=== PATIENT | male | born 1990 | race Caucasian/White ===

== ENCOUNTER 2017-02-08 11:43 | Emergency (ER) | payer BC ==
[~2017-02-08] VITALS: Ht 182.9 cm; Wt 99.8 kg
[~2017-02-08 11:43] MED LIST: AMITRIPTYLINE H10 M3 PO; ATIVAN1 MG PO; CLONIDINE0.1 PO; LEVAQUIN 500 M500 M2 PO; OMEPRAZOLE 20 M20 M1 PO; RISPERDAL 1 MG T1 MG PO; RISPERDAL2 MG PO; SINGULAIR 10 MG10 M1 PO; TRAZODONE HCL100 MG PO
[2017-02-08 12:59] LABS: ABSOLUTE NEUTROPHILS 9.3 thou/uL (1.4-8.2); BASOPHILS 0.3 % (0.0-2.0); EOSINOPHILS 0.4 % (0.0-3.0); HEMATOCRIT 38.4 % (42.0-52.0); HEMOGLOBIN 12.5 gm/dL (14.0-18.0); LYMPHOCYTES 11.9 % (24.0-44.0); MANUAL DIFF NO; MCH 23.6 pg (26.0-34.0); MCHC 32.6 g/dL (28.0-37.0); MCV 72.6 fL (80.0-100.0); MONOCYTES 6.1 % (1.0-8.0); PLATELET COUNT 430 thou/uL (150-400); POLYS 81.3 % (36.0-66.0); RBC 5.28 mil/uL (4.50-6.00); RDW 16.5 % (10.5-14.5); WBC 11.5 thou/uL (4.0-11.0)
[2017-02-08 13:02] LABS: CALCIUM 10.3 mg/dL (8.5-10.1)
[2017-02-08 14:20] LABS: URINE BILIRUBIN NEGATIVE (Negative); URINE BLOOD NEGATIVE (Negative); URINE COLOR YELLOW; URINE GLUCOSE-RANDOM* NEGATIVE (Negative); URINE KETONES NEGATIVE (Negative); URINE LEUKOCYTES-REFLEX NEGATIVE (Negative); URINE PROTEIN (DIPSTICK) TRACE (Negative); URINE SPECIFIC GRAVITY 1.025 (1.003-1.035); URINE UROBILINOGEN 0.2 E.U./dl (0.2-1.0)
[2017-02-08 14:32] LABS: AMP/METHAMP Negative (Negative); BARBITURATES Negative (Negative); BENZODIAZEPINES POSITIVE (Negative); COCAINE Negative (Negative); METHADONE Negative (Negative); OPIATES Negative (Negative); PCP Negative (Negative); THC Negative (Negative)
[2017-02-08 14:57] LABS: ANISOCYTOSIS 1+; HYPOCHROMASIA 1+; MICROCYTES 2+; PLATELET ESTIMATE INCREASED
[2017-02-08] MEDS ORDERED: XANAX1 MG PO (14:57)
[2017-02-08 15:15] VITALS: BP 128/82
== END 2017-02-08 15:17 | disposition home or self-care (01) ==
LOC: ER 11:43
PROVIDERS: Emergency Medicine
DX: R56.9 Unspecified convulsions (principal); F41.9 Anxiety disorder, unspecified; K21.9 Gastro-esophageal reflux disease without esophagitis; Z98.890 Other specified postprocedural states; Z88.0 Allergy status to penicillin

== ENCOUNTER 2018-05-31 15:14 | Inpatient (IN) | payer BC ==
[~2018-05-31] VITALS: Ht 180.3 cm; Wt 96.2 kg
--- NOTE | ~2018-05-31 | PATH ---
[facility] [place] [address] PATHOLOGY RPT PROCEDURE Name: LATASHAZANDER R Room #: 453-P DIS IN M.R.#: [id number] Admission: 05/31/18 Date of : 89 Discharge: 06/06/18 Report #: [id number] Path Case #: [id number] [facility] Accession Number: [id number] . 01 Material submitted: . PART A: BIOPSY OF ANTRUM PART B: BIOPSY OF SMALL BOWEL . 01 Clinical history: . Anemia, GI bleed A: Rule out celiac B: Rule out H. pylori . 02 Diagnosis: A. Gastric mucosa "biopsy of antral mucosa rule out H. pylori". - Mild chronic reactive gastropathy. - No Helicobacter pylori are seen. . B. Small intestinal biopsy "biopsy of small bowel r/o celiac disease". - Mild chronic non-specific inflammation. - No Helicobacter pylori organisms seen. - Diagnostic features of Sprue are not seen. (SHA:at;06/06/2018) . QTA/06/06/2018 . 02 Comment: Part A was labeled small bowel when it actually is an antrum. Part B was labeled antrum but actually it is a small bowel biopsy. This was corrected. (SHA:at;06/06/2018) . 02 Electronically signed: . Skip Chicas MD, Pathologist NPI- [id number] . 01 Gross description: . A. The specimen is received in formalin, labeled "Zander Ibarra, JOSS of antrum" and consists of a fragment of soft womack tissue measuring 0.5 x 0.4 x 0.1 cm which is entirely submitted in A1. . B. The specimen is received in formalin, labeled "Zander Ibarra, JOSS of small bowel" and consists of a fragment of womack tissue measuring 0.5 x 0.4 x 0.2 cm which is entirely submitted in B1. . (SDY; 06/05/2018) SYU/SYU [address] [address] PATHOLOGY RPT PROCEDURE Name: ZANDER IBARRA Room #: 453-P [facility] IN M.R.#: [id number] Admission: 05/31/18 Date of : 89 Discharge: 06/06/18 Report #: [id number] Path Case #: [id number] . 02 Pathologist provided ICD-10: K29.50, K31.9 . 02 CPT . 944556, 366279, B79444 Specimen Comment: A courtesy copy of this report has been sent to Specimen Comment: [phone], , . Specimen Comment: Report sent to ,DR WELLS / DR MUNOZ Specimen Comment: A duplicate report has been generated due to demographic updates. Performed at: [address] [facility], [place] [id number] MD Oral Randle MD Phone: [phone] Performed at: [address] [id number] MD Jessie Becerra MD Phone: [phone]
--- NOTE | ~2018-05-31 | HC ---
[facility] [place] [address] CONSULTATION Name: BUDDY PAGAN Chris Room #: 453-P ADM IN M.R.#: [id number] Admission: 05/31/18 Attend Phys: Joaquín Harrington MD Discharge: Date of : 89 Report #: [id number] THIS REPORT FOR: //name// CC: ALEXANDER Rosas MD REQUESTING PHYSICIAN: Jeanette Foy DO REASON FOR CONSULTATION: Iron deficiency anemia. HISTORY OF PRESENT ILLNESS: The patient is a 27-year-old nonverbal male, who is examined in the presence of his grandmother. He evidently was brought into the hospital and was found to have profound anemia, for which I was consulted on. When he was brought in, his hemoglobin was approximately 8.3, his MCV has recently been 58.9. Note that several years ago in 04/2014, it had been 82. Also, his white count is fairly normal at 5.2. Differential slightly abnormal with increased lymphocytes compared to the past. Iron panel is extremely low, B12 is adequate. Kidney functions normal. Liver functions normal. The patient had a recent colonoscopy that was normal to the ileum and he had a recent EGD that had a question of small esophagitis, small gastritis, small hiatal hernia and also plastic bag and some metal debris in the duodenum consistent with pica. According to the grandmother, the patient eats a regular meat and potatoes diet. They are not aware of any obvious bleeding. No unusual bruising noted. He has a history of GERD and has been on a PPI for it sounds like maybe 3-4 years. PAST MEDICAL HISTORY: Appears to be notable for the recent worsening most likely chronic iron deficiency, unknown cause with normal oral intake, no obvious bleeding with plans for pill camera, also autism and expressive aphasia since , also history of aspiration pneumonia in the past, history of GERD, history of a seizure, if I understand correctly, history of sleep apnea, not using CPAP, also history of pica. Note that last UA was 2016. This will be repeated back then that did not show any blood. SOCIAL HISTORY: He is nonverbal. From history, it sound like no alcohol, no tobacco, no street drugs. MEDICATIONS: At this time in the hospital currently include promethazine p.r.n., pantoprazole 40 b.i.d., divalproex 500 b.i.d., quetiapine 50 mg at bedtime, risperidone 3 mg at bedtime, Tylenol p.r.n., MiraLax 17 grams daily, Zofran p.r.n., Ambien p.r.n., trazodone 300 at night p.r.n., Xanax 1 mg I think p.r.n. or as needed schedule. [address] [address] CONSULTATION Name: LATASHABUDDY Room #: 453-P [facility] IN M.R.#: [id number] Admission: 05/31/18 Attend Phys: Joaquín Harrington MD Discharge: Date of : 89 Report #: [id number] PHYSICAL EXAMINATION: GENERAL: The patient appears his stated age. He is not really wanting to wake up, it is only in the morning about 8:10. VITAL SIGNS: His height is reported as 5 feet 11 inches, 180.3 cm. Weight is 212 pounds, 96.2 kilograms. Blood pressure is 123/70, O2 sat 97, respirations 18, pulse 105, actually temperature 98.5. HEENT: Face seems symmetric. LUNGS: Seem clear anteriorly without any rhonchi, rales or wheezes. CARDIOVASCULAR: Appears regular rate. LYMPHATIC: No enlarged lymph nodes in the supraclavicular, cervical or axillary region. ABDOMEN: Seems to be fairly soft, slightly obese. EXTREMITIES: No gross edema. LABORATORY DATA: As mentioned above, notable for the severe anemia with normal liver functions and chemistries. Iron was 18, percent saturation 4, TIBC 410. White count on admission 5, currently 5.2, hemoglobin on admission this time was 8.3. Note that back in 01/2017, it had been 12.5. MCV is recent this admit 58.9, last January it had been 72. If you go in 04/2014, it had been 83 and 84. RDW in the past had been 13 and 14 in 01/26, most recently 18 and 20. Platelets have been normal. Differential shows recently over the last 2 days have a slight increase in lymphocytes, but on admission his lymphocytes were the same as before around 34%, unclear meaning of this, we will continue following. Retic count seems fairly appropriate with an absolute retic count of 223 and then 100. Peripheral smear is pending. ASSESSMENT AND PLAN: 1. Iron deficiency anemia, most likely related to combination of possible slow GI loss and poor absorption. GI loss may be from history of hiatal hernia and small amounts of gastritis and esophagitis and poor absorption probably from chronic use of PPI. No obvious source of blood loss. I do agree with pill camera to make sure that this nonverbal person does not have some other lesions that were not aware of. Note, he did have CT abdomen and pelvis in 2013, had slightly upper range normal spleen of 12 cm, but for his height that is not inappropriate. No lymphadenopathy at that time. I agree with iron infusion and then would suggest waiting to see how well his iron stays up and would probably consider serial CBCs and irons perhaps every 4-6 months. 2. History of mild gastritis and mild esophagitis. I agree with chronic PPI, but will defer to GI. 3. Autism and special needs and mood and anxiety. Continue with risperidone p.r.n., trazodone and his quetiapine and other meds. 4. Possible seizure, continue with divalproex. [facility] [address] [place] [address] CONSULTATION Name: BUDDY PAGAN Room #: 453-P [facility] IN M.R.#: [id number] Admission: 05/31/18 Attend Phys: Joaquín Harrington MD Discharge: Date of : 89 Report #: [id number] We will be available if other questions arise. By: [id number] Maxwell Arreola MD /nt
[~2018-05-31 15:14] MED LIST changes: +DIVALPROEX SOD500 MG PO; +SEROQUEL 25 MG25 M1 PO; +XANAX1 MG PO
[2018-05-31 15:18] VITALS: BP 129/80
[2018-05-31] MEDS ORDERED: TRAZODONE 150150 M1 PO (15:38)
[2018-05-31] MEDS ORDERED: AMBIEN 5 MG TABL5 M1 PO (15:39)
[2018-05-31 16:50] LABS: HEMATOCRIT 27.4 % (42.0-52.0); HEMOGLOBIN 8.3 gm/dL (14.0-18.0); MCH 17.8 pg (26.0-34.0); MCHC 30.3 g/dL (28.0-37.0); MCV 58.9 fL (80.0-100.0); PLATELET COUNT 413 thou/uL (150-400); RBC 4.65 mil/uL (4.50-6.00); RDW 18.8 % (10.5-14.5)
[2018-05-31 16:59] LABS: ANION GAP 8 mmol/L (7-16); BUN 10 mg/dL (7-18); CALCIUM 9.1 mg/dL (8.5-10.1); CHLORIDE 108 mmol/L (98-107); CO2 26 mmol/L (21-32); CREATININE 0.7 mg/dL (0.7-1.3); GLUCOSE 81 mg/dL (74-106); POTASSIUM 3.8 mmol/L (3.5-5.1); SODIUM 142 mmol/L (136-145)
[2018-05-31 17:05] LABS: ALBUMIN 3.2 g/dL (3.4-5.0); DIRECT BILIRUBIN < 0.1 mg/dL (<0.1-0.3); SGOT 13 U/L (15-37); SGPT 21 U/L (30-65); TOTAL BILIRUBIN 0.1 mg/dL (<0.1-1.0); TOTAL PROTEIN 7.1 g/dL (6.4-8.2)
[2018-05-31 17:13] LABS: ABSOLUTE NEUTROPHILS 2.6 thou/uL (1.4-8.2)
[2018-05-31 17:14] LABS: ANISOCYTOSIS 3+; POLYCHROMASIA 1+
[2018-05-31 17:15] LABS: HYPOCHROMASIA 3+; MICROCYTES 3+; POIKILOCYTOSIS SLIGHT
[2018-05-31 20:29] VITALS: BP 129/69
[2018-05-31 20:54] VITALS: BP 111/66
[2018-06-01 05:36] VITALS: BP 139/77
[2018-06-01 07:09] VITALS: BP 131/68
[2018-06-01 07:25] LABS: HEMATOCRIT 27.7 % (42.0-52.0); HEMOGLOBIN 8.3 gm/dL (14.0-18.0); MCH 17.6 pg (26.0-34.0); MCV 58.6 fL (80.0-100.0); RBC 4.73 mil/uL (4.50-6.00); RDW 18.5 % (10.5-14.5); WBC 5.3 thou/uL (4.0-11.0)
[2018-06-01 07:31] LABS: CALCIUM 9.3 mg/dL (8.5-10.1); CREATININE 0.8 mg/dL (0.7-1.3)
[2018-06-01 11:36] VITALS: BP 131/68
[2018-06-01 13:06] VITALS: BP 114/78
[2018-06-01 16:18] LABS: ABSOLUTE RETIC COUNT 0.2235 10^6/uL; OBSERVED RETIC COUNT 4.74 % (0.6-2.6)
[2018-06-01 16:20] LABS: % SATURATION 4 % (20-39); IRON 18 ug/dL (65-175); TIBC 410 ug/dL (250-450)
[2018-06-01 19:18] VITALS: BP 117/73
[2018-06-01 22:19] VITALS: BP 117/73
[2018-06-02 03:50] VITALS: BP 120/79
[2018-06-02 09:10] VITALS: BP 123/69
[2018-06-02 19:42] VITALS: BP 110/70
[2018-06-03 04:41] VITALS: BP 113/75
[2018-06-03 06:03] LABS: HEMATOCRIT 29.9 % (42.0-52.0); MCH 17.8 pg (26.0-34.0); MCV 59.4 fL (80.0-100.0); PLATELET COUNT 379 thou/uL (150-400); RBC 5.03 mil/uL (4.50-6.00); RDW 20.3 % (10.5-14.5); WBC 6.4 thou/uL (4.0-11.0)
[2018-06-03 06:20] LABS: CALCIUM 9.2 mg/dL (8.5-10.1); CREATININE 0.8 mg/dL (0.7-1.3); POTASSIUM 4.1 mmol/L (3.5-5.1)
[2018-06-03 08:00] VITALS: BP 118/68
[2018-06-03 08:32] LABS: ABSOLUTE NEUTROPHILS 2.4 thou/uL (1.4-8.2); ANISOCYTOSIS 2+; MICROCYTES 3+
[2018-06-03 08:33] LABS: HYPOCHROMASIA 3+
[2018-06-03 15:00] VITALS: BP 115/75
[2018-06-03 19:13] VITALS: BP 121/61
[2018-06-04 01:33] VITALS: BP 121/61
[2018-06-04 06:07] LABS: HEMATOCRIT 28.7 % (42.0-52.0); HEMOGLOBIN 8.8 gm/dL (14.0-18.0); MCH 18.1 pg (26.0-34.0); MCHC 30.8 g/dL (28.0-37.0); MCV 58.8 fL (80.0-100.0); PLATELET COUNT 374 thou/uL (150-400); RBC 4.88 mil/uL (4.50-6.00); RDW 20.4 % (10.5-14.5); WBC 5.9 thou/uL (4.0-11.0)
[2018-06-04 06:25] LABS: CALCIUM 9.2 mg/dL (8.5-10.1); CREATININE 0.7 mg/dL (0.7-1.3); POTASSIUM 3.7 mmol/L (3.5-5.1)
[2018-06-04 07:40] VITALS: BP 112/75
[2018-06-04 08:31] LABS: ABSOLUTE NEUTROPHILS 1.7 thou/uL (1.4-8.2); ANISOCYTOSIS 2+; MICROCYTES 2+; PLATELET ESTIMATE NORMAL
[2018-06-04 08:32] LABS: HYPOCHROMASIA 1+
[2018-06-04 11:42] LABS: ABSOLUTE RETIC COUNT 0.1006 10^6/uL; OBSERVED RETIC COUNT 1.92 % (0.6-2.6)
[2018-06-04 13:40] VITALS: BP 117/73
[2018-06-04 19:30] VITALS: BP 119/83
[2018-06-05 06:12] LABS: HEMATOCRIT 30.1 % (42.0-52.0); HEMOGLOBIN 9.2 gm/dL (14.0-18.0); MCH 17.9 pg (26.0-34.0); MCHC 30.4 g/dL (28.0-37.0); MCV 58.9 fL (80.0-100.0); RBC 5.1 mil/uL (4.50-6.00); RDW 20.1 % (10.5-14.5); WBC 5.2 thou/uL (4.0-11.0)
[2018-06-05 06:24] LABS: CALCIUM 9.9 mg/dL (8.5-10.1); CREATININE 0.9 mg/dL (0.7-1.3); POTASSIUM 4.2 mmol/L (3.5-5.1)
[2018-06-05 09:55] VITALS: BP 110/73
[2018-06-05] MEDS ORDERED: IRON325 M1 PO (15:39)
[2018-06-05 17:23] VITALS: BP 130/84
[2018-06-05 19:32] VITALS: BP 107/65
[2018-06-06 03:20] VITALS: BP 123/78
[2018-06-06 11:05] LABS: HEMATOCRIT 32.5 % (42.0-52.0); HEMOGLOBIN 9.6 gm/dL (14.0-18.0)
[2018-06-06 13:25] VITALS: BP 111/71
[2018-06-06 15:09] LABS: URINE BILIRUBIN NEGATIVE (Negative); URINE BLOOD NEGATIVE (Negative); URINE CLARITY CLEAR; URINE COLOR YELLOW; URINE GLUCOSE-RANDOM* NEGATIVE (Negative); URINE KETONES NEGATIVE (Negative); URINE LEUKOCYTES NEGATIVE (Negative); URINE NITRITE NEGATIVE (Negative); URINE PROTEIN (DIPSTICK) NEGATIVE (Negative); URINE SPECIFIC GRAVITY <= 1.005 (1.005-1.035); URINE UROBILINOGEN 0.2 E.U./dl (0.2-1.0)
[2018-06-06 16:33] VITALS: BP 111/71
[2018-06-06 16:47] LABS: HEMOGLOBIN 8.8 g/dL (13.0-17.7)
== END 2018-06-06 20:32 | disposition home or self-care (01) | DRG 393 ==
LOC: ER 15:14 → 4W 18:58 → EROBS 18:58 → 4W 20:30 → ENTRNSPT 06-06 20:21 → 4W 06-06 20:32
PROVIDERS: Emergency Medicine; Hospitalist; Internal Medicine Gastroenterology; Internal Medicine Hematology & Oncology; Student in an Organized Health Care Education/Training Program
DX: T18.2XXA Foreign body in stomach, initial encounter (principal); K29.71 Gastritis, unspecified, with bleeding; K22.11 Ulcer of esophagus with bleeding; F84.0 Autistic disorder; K21.9 Gastro-esophageal reflux disease without esophagitis; F32.9 Major depressive disorder, single episode, unspecified; G40.909 Epilepsy, unspecified, not intractable, without status epilepticus; F41.9 Anxiety disorder, unspecified; D50.9 Iron deficiency anemia, unspecified; F50.89 Other specified eating disorder; Z53.9 Procedure and treatment not carried out, unspecified reason; Z88.0 Allergy status to penicillin; Z79.899 Other long term (current) drug therapy; X58.XXXA Exposure to other specified factors, initial encounter; Y93.89 Activity, other specified; Y92.89 Other specified places as the place of occurrence of the external cause; Y99.8 Other external cause status
CPT/HCPCS: 10045; 10047; 62110; 62900; 70005